=== PATIENT | female | born 1950 | race Caucasian/White ===

== ENCOUNTER 2023-10-31 21:50 | Outpatient (CLI) | payer MEDICARE, OTHER, SELFPAY | END 2023-10-31 21:51 | disposition home or self-care (01) | PROVIDERS: Visit Provider Family Medicine | DX: R22.43 Localized swelling, mass and lump, lower limb, bilateral (principal) | CPT/HCPCS: A0425; A0429 ==

== ENCOUNTER 2024-04-30 17:17 | Outpatient (CLI) | payer MEDICARE, OTHER, SELFPAY | END 2024-04-30 17:18 | disposition home or self-care (01) | LOC: AMB 05-01 17:29 | PROVIDERS: Visit Provider Emergency Medicine | DX: R55 Syncope and collapse (principal); E11.65 Type 2 diabetes mellitus with hyperglycemia | CPT/HCPCS: A0425; A0429 ==